=== PATIENT | male | born 1990 | race African-American/Black ===

== ENCOUNTER 2021-09-22 09:59 | Emergency (ER) | payer OTHER ==
[~2021-09-22] VITALS: Ht 175.3 cm; Wt 72.6 kg
== END 2021-09-22 11:29 | disposition home or self-care (01) ==
LOC: ER 09:59
DX: T63.481A Toxic effect of venom of other arthropod, accidental (unintentional), initial encounter (principal); Y93.9 Activity, unspecified; Y92.832 Beach as the place of occurrence of the external cause